=== PATIENT | male | born 1960 | race Caucasian/White ===

== ENCOUNTER 2017-08-06 23:33 | Emergency (ER) | payer OTHER ==
[2017-08-07] MEDS ORDERED: ASPIRIN EC 81 MG TAB PO ONE (00:02)
[2017-08-07 00:10] LABS: Protime INR 0.98
[2017-08-07 00:18] LABS: Absolute Monocytes 0.5 K/uL (0.1-1.3); Absolute Neutrophil 3.1 K/uL (1.8-8.0); Basophils % 0.5 % (0-1.3); Bicarbonate 30 mEq/L (21-31); Eosinophils % 3.7 % (0-4.4); Glucose Level 96 mg/dL (65-120); Hematocrit 39.5 % (39.6-49.0); Lymphocytes % 34.2 % (15.3-44.8); MCH 30.8 pg (27.0-35.0); MCV 89.1 fL (80-100); Monocytes % 8.5 % (3.3-12.3); RBC Red Blood Cell Count 4.43 M/uL (4.33-5.43); Sodium Level 142 mEq/L (135-145)
[2017-08-07 00:24] LABS: ALT/SGPT 21 IU/L (10-60); AST/SGOT 22 IU/L (10-42); Albumin 4.1 g/dL (3.2-5.5); Alkaline Phosphatase 58 IU/L (42-121); BUN Blood Urea Nitrogen 17 mg/dL (6-20); Bilirubin Direct 0.2 mg/dL (0-0.2); Bilirubin Total 1.1 mg/dL (0.3-1.2); Creatine Phosphokinase 85 IU/L (22-269); Magnesium 1.7 mg/dL (1.8-2.5); Protein, Total 6.5 g/dL (6.0-8.3)
[2017-08-07 00:26] LABS: CKMB Creatine Kinase MB 1.5 ng/ml (0.3-4.0)
[2017-08-07] MEDS ORDERED: MAGNESIUM SULFATE 1 gm IVPB 1 GM/100 ML BAG IV ONE (00:55)
--- NOTE | 2017-08-07 02:40 | ER ---
Nurse's Notes [facility] Name: Phani Gaona Age: 56 yrs Sex: Male : 1960 Arrival Date: 08/06/2017 Time: 23:34 Bed 5 Private MD: Diagnosis: Chest pain Presentation: 08/06 23:35 Presenting complaint: Patient states: that for the past couple of days he has been fc having chest pain that radiates to his left arm. Denies any nausea, vomiting or shortness of breath. Transition of care: patient was not received from another setting of care. Onset of symptoms was August 04, 2017. Risk Assessment: Do you want to hurt yourself or someone else? Patient reports no desire to harm self or others. Initial Sepsis Screen: Does the patient meet any 2 criteria? No. Patient's initial sepsis screen is negative. Does the patient have a suspected source of infection? No. Patient's initial sepsis screen is negative. Care prior to arrival: None. 23:35 Method Of Arrival: Ambulatory 23:35 Acuity: LAURA 3 fc Historical: - Allergies: 23:46 No Known Allergies; fc - Home Meds: 23:46 Metoprolol Tartrate Oral 2 times per day [Active]; Plavix 75 mg Oral tab 1 tab once fc daily [Active]; Lipitor 80 mg Oral tab 1 tab once daily [Active]; aspirin 325 mg Oral tab 1 tab once daily [Active]; - PMHx: 23:46 High Cholesterol; Hypertension; Myocardial infarction; fc - PSHx: 23:46 Heart stents; fc - Immunization history:: Last tetanus immunization: up to date. - Social history:: Smoking status: Patient/guardian denies using tobacco, Patient uses alcohol, occasionally. - Ebola Screening: : Patient negative for fever greater than or equal to 101.5 degrees Fahrenheit, and additional compatible Ebola Virus Disease symptoms Patient denies exposure to infectious person Patient denies travel to an Ebola-affected area in the 21 days before illness onset. Screenin:35 Abuse screen: Denies threats or abuse. Nutritional screening: No deficits noted. fc Tuberculosis screening: No symptoms or risk factors identified. Fall Risk None identified. Assessment: 08/07 00:09 General: Appears in no apparent distress. comfortable, Behavior is calm, cooperative. mg2 Pain: Complains of pain in chest Pain radiates to left shoulder Pain currently is 2 out of 10 on a pain scale. Quality of pain is described as sore Pain began a week Is intermittent, Alleviated by rest. Neuro: Level of Consciousness is awake, alert, obeys commands, Oriented to person, place, time, situation. Cardiovascular: Capillary refill < 3 seconds Patient's skin is warm and dry. Rhythm is sinus bradycardia Chest pain is described as mild, Pain is 2 out of 10 on a pain scale. Respiratory: Airway is patent Respiratory effort is even, unlabored, Respiratory pattern is regular, symmetrical. GI: No signs and/or symptoms were reported involving the gastrointestinal system. : No signs and/or symptoms were reported regarding the genitourinary system. EENT: No signs and/or symptoms were reported regarding the EENT system. Derm: Skin is intact, Skin is pink, warm \T\ dry. normal. Musculoskeletal: Circulation, motion, and sensation intact. 02:11 Reassessment: Patient appears in no apparent distress at this time. Patient and/or mg2 family updated on plan of care and expected duration. Pain level reassessed. Patient is alert, oriented x 3, equal unlabored respirations, skin warm/dry/pink. repeat Troponin and ecg was done. awaiting result. patient informed. Vital Signs: 08/06 23:35 BP 145 / 99; Pulse 49; Resp 18; Temp 98.3(O); Pulse Ox 100% on R/A; Weight 72.57 kg fc (R); Height 5 ft. 10 in. (177.80 cm) (R); Pain 310; 08/07 00:59 BP 111 / 74; Pulse 50; Resp 18; Pulse Ox 100% on R/A; Pain 1/10; mg2 02:11 BP 113 / 75; Pulse 50; Resp 18; Pulse Ox 100% on R/A; Pain 1/10; mg2 08/06 23:35 Body Mass Index 22.96 (72.57 kg, 177.80 cm) fc ED Course: 08/06 23:34 Patient arrived in ED. al2 23:35 Arm band placed on Patient placed in an exam room, on a stretcher. fc 23:35 Patient has correct armband on for positive identification. Placed in gown. Bed in low fc position. Call light in reach. senior digital designer on. Pulse ox on. NIBP on. 23:35 No provider procedures requiring assistance completed. fc 23:43 Triage completed. fc 23:49 Initial lab(s) drawn, by me, EKG done, by ED staff, reviewed by Stephan Barbour MD. Inserted aa1 saline lock: 20 gauge in right antecubital area, using aseptic technique. Blood collected. Patient maintains SpO2 saturation greater than 95% on room air. 23:52 Stephan Barbour MD is Attending Physician. pkl 08/07 00:06 Alo Alexis, ADAM is Primary Nurse. mg2 00:08 X-ray completed. Portable x-ray completed in exam room. Patient tolerated procedure kw well. 00:10 XRAY Chest (1 view) In Process Unspecified. EDMS 02:48 IV discontinued, intact, bleeding controlled, No redness/swelling at site. Pressure mg2 dressing applied. Administered Medications: 00:06 Drug: Aspirin 162 mg Route: PO; mg2 02:12 Follow up: Response: No adverse reaction; Pain is decreased mg2 00:58 Drug: Magnesium Sulfate 1 grams Route: IVPB; Infused Over: 1 hrs; Site: right mg2 antecubital; 02:13 Follow up: Response: No adverse reaction; IV Status: Completed infusion mg2 Outcome: 02:39 Discharge ordered by . pkl 02:48 Discharged to home ambulatory. mg2 02:48 Condition: stable 02:48 Discharge instructions given to patient, Instructed on discharge instructions, follow up and referral plans. Demonstrated understanding of instructions, follow-up care. 02:49 Patient left the ED. mg2 Signatures: Dispatcher [employer] EDMS Steffany Johnson RN RN aa1 Stephan Barbour MD MD pkKatelyn Lee RN RN fc Whitley, Kimberlee kw Love, Angelica al2 [place], Michele, ADAM MEDINA mg2
--- NOTE | 2017-08-07 02:40 | EDPHYS ---
Physician Documentation [facility] Name: Phani Gaona Age: 56 yrs Sex: Male : 1960 Arrival Date: 08/06/2017 Time: 23:34 Bed 5 Private MD: ED Physician Stephan Barbour HPI: 08/06 23:57 This 56 yrs old Male presents to ER via Ambulatory with complaints of Chest pkl Pain. 23:57 The patient or guardian reports chest pain that is located primarily in the substernal pkl area. Onset: yesterday. The pain radiates to the left arm. Associated signs and symptoms: The patient has no apparent associated signs or symptoms. The chest pain is described as dull. The patient has experienced a previous episode, approximately 1 years ago. Historical: - Allergies: 23:46 No Known Allergies; fc - Home Meds: 23:46 Metoprolol Tartrate Oral 2 times per day [Active]; Plavix 75 mg Oral tab 1 tab once fc daily [Active]; Lipitor 80 mg Oral tab 1 tab once daily [Active]; aspirin 325 mg Oral tab 1 tab once daily [Active]; - PMHx: 23:46 High Cholesterol; Hypertension; Myocardial infarction; fc - PSHx: 23:46 Heart stents; fc - Immunization history:: Last tetanus immunization: up to date. - Social history:: Smoking status: Patient/guardian denies using tobacco, Patient uses alcohol, occasionally. - Ebola Screening: : Patient negative for fever greater than or equal to 101.5 degrees Fahrenheit, and additional compatible Ebola Virus Disease symptoms Patient denies exposure to infectious person Patient denies travel to an Ebola-affected area in the 21 days before illness onset. ROS: 23:57 Eyes: Negative for injury, pain, redness, and discharge, ENT: Negative for injury, pkl pain, and discharge, Neck: Negative for injury, pain, and swelling. 23:57 Cardiovascular: Positive for chest pain. 23:57 Respiratory: Negative for cough, shortness of breath. 23:57 Abdomen/GI: Negative for abdominal pain, nausea, vomiting, and diarrhea. 23:57 Back: Negative for acute changes. 23:57 : Negative for urinary symptoms. 23:57 MS/extremity: Negative for acute changes. 23:57 Skin: Negative for rash. 23:57 Neuro: Negative for altered mental status. Exam: 23:57 Head/Face: Normocephalic, atraumatic. Eyes: Pupils equal round and reactive to light, pkl extra-ocular motions intact. Lids and lashes normal. Conjunctiva and sclera are non-icteric and not injected. Cornea within normal limits. Periorbital areas with no swelling, redness, or edema. ENT: Nares patent. No nasal discharge, no septal abnormalities noted. Tympanic membranes are normal and external auditory canals are clear. Oropharynx with no redness, swelling, or masses, exudates, or evidence of obstruction, uvula midline. Mucous membranes moist. Neck: Trachea midline, no thyromegaly or masses palpated, and no cervical lymphadenopathy. Supple, full range of motion without nuchal rigidity, or vertebral point tenderness. No Meningismus. Chest/axilla: Normal chest wall appearance and motion. Nontender with no deformity. No lesions are appreciated. Cardiovascular: Regular rate and rhythm with a normal S1 and S2. No gallops, murmurs, or rubs. Normal PMI, no JVD. No pulse deficits. Respiratory: Lungs have equal breath sounds bilaterally, clear to auscultation and percussion. No rales, rhonchi or wheezes noted. No increased work of breathing, no retractions or nasal flaring. Abdomen/GI: Soft, non-tender, with normal bowel sounds. No distension or tympany. No guarding or rebound. No evidence of tenderness throughout. Back: No spinal tenderness. No costovertebral tenderness. Full range of motion. Male : Normal genitalia with no discharge or lesions. Skin: Warm, dry with normal turgor. Normal color with no rashes, no lesions, and no evidence of cellulitis. MS/ Extremity: Pulses equal, no cyanosis. Neurovascular intact. Full, normal range of motion. Neuro: Awake and alert, GCS 15, oriented to person, place, time, and situation. Cranial nerves II-XII grossly intact. Motor strength 5/5 in all extremities. Sensory grossly intact. Cerebellar exam normal. Normal gait. Vital Signs: 23:35 BP 145 / 99; Pulse 49; Resp 18; Temp 98.3(O); Pulse Ox 100% on R/A; Weight 72.57 kg fc (R); Height 5 ft. 10 in. (177.80 cm) (R); Pain 3/10; 08/07 00:59 BP 111 / 74; Pulse 50; Resp 18; Pulse Ox 100% on R/A; Pain 1/10; mg2 02:11 BP 113 / 75; Pulse 50; Resp 18; Pulse Ox 100% on R/A; Pain 1/10; mg2 08/06 23:35 Body Mass Index 22.96 (72.57 kg, 177.80 cm) fc MDM: 08/06 23:52 Patient medically screened. pkl 08/07 02:36 Data reviewed: vital signs, nurses notes, lab test result(s), EKG, radiologic studies, pkl plain films. ED course: Discussed lab., EKG, X rays findings with patient. Advised to see Dr. Kong ( patient Car Rental Clerk ) in 1 to 2 days for further evaluations. 08/06 23:50 Order name: Basic Metabolic Panel; Complete Time: 00:49 aa1 08/06 23:50 Order name: BNP; Complete Time: 00:54 aa08/06 23:50 Order name: CBC with Diff; Complete Time: 00:49 aa08/06 23:50 Order name: Ckmb; Complete Time: 00:49 aa08/06 23:50 Order name: CPK; Complete Time: 00:49 aa08/06 23:50 Order name: LFT's; Complete Time: 00:49 aa08/06 23:50 Order name: Magnesium; Complete Time: 00:49 aa08/06 23:50 Order name: PT-INR; Complete Time: 00:49 aa08/06 23:50 Order name: Ptt, Activated; Complete Time: 00:49 08/06 23:50 Order name: Troponin (emerg Dept Use Only); Complete Time: 00:49 aa08/06 23:50 Order name: XRAY Chest (1 view) aa1 08/07 01:57 Order name: Troponin (emerg Dept Use Only); Complete Time: 02:36 pkl 08/06 23:50 Order name: EKG; Complete Time: 23:51 aa08/06 23:50 Order name: Cardiac monitoring; Complete Time: 23:51 aa1 08/06 23:50 Order name: EKG - Nurse/Tech; Complete Time: 23:51 aa08/06 23:50 Order name: IV Saline Lock; Complete Time: 23:51 08/06 23:50 Order name: Labs collected and sent; Complete Time: 23:51 08/06 23:50 Order name: O2 Per Protocol; Complete Time: 23:51 08/06 23:50 Order name: O2 Sat Monitoring; Complete Time: 23:51 08/07 01:57 Order name: EKG - Nurse/Tech; Complete Time: 02:12 pkl Administered Medications: 00:06 Drug: Aspirin 162 mg Route: PO; mg2 02:12 Follow up: Response: No adverse reaction; Pain is decreased mg2 00:58 Drug: Magnesium Sulfate 1 grams Route: IVPB; Infused Over: 1 hrs; Site: right mg2 antecubital; 02:13 Follow up: Response: No adverse reaction; IV Status: Completed infusion mg2 Disposition: 08/07/17 02:39 Discharged to Home. Impression: Chest pain. - Condition is Stable. - Medication Reconciliation Form, Thank You Letter, Antibiotic Education, Prescription Opioid Use form. - Follow up: Private Physician; When: 1 - 2 days; Reason: Re-evaluation by your physician. - Problem is new. - Symptoms have improved. Signatures: Dispatcher [employer] EDMS Steffany Johnson RN RN aa1 Stephan Barbour MD MD pkl Katelyn Nagy RN RN Alo Alexis RN RN mg2 Corrections: (The following items were deleted from the chart) 02:49 02:39 08/07/2017 02:39 Discharged to Home. Impression: Chest pain. Condition is Stable. mg2 Forms are Medication Reconciliation Form, Thank You Letter, Antibiotic Education, Prescription Opioid Use. Follow up: Private Physician; When: 1 - 2 days; Reason: Re-evaluation by your physician. Problem is new. Symptoms have improved. pkl
--- NOTE | 2017-08-07 06:19 | EKG ---
Test Date: 2017-08-07 Test Time: 02:08:08 Rip Machine Operator: CHRIS MEASUREMENT RESULTS: Intervals: Rate: 50 AR: 192 QRSD: 94 QT: 448 QTc: 408 [place]: P: 46 AR: 192 QRS: 43 T: 43 INTERPRETIVE STATEMENTS: Sinus bradycardia with occasional premature ventricular complexes Otherwise normal ECG Compared to ECG 04/02/2015 02:07:24 Ventricular premature complex(es) now present Sinus rhythm no longer present Electronically Signed On 08-07-17 06:18:40 CDT by Bry George
--- NOTE | 2017-08-07 07:46 | EKG ---
Test Date: 2017-08-06 Test Time: 23:45:12 Au Pair: MEASUREMENT RESULTS: Intervals: Rate: 49 KS: 180 QRSD: 86 QT: 430 QTc: 388 [place]: P: 41 KS: 180 QRS: 55 T: 47 INTERPRETIVE STATEMENTS: Sinus bradycardia Otherwise normal ECG Compared to ECG 04/02/2015 02:07:24 Sinus rhythm no longer present Electronically Signed On 08-07-17 07:45:28 CDT by Bry George
--- NOTE | 2017-08-07 08:44 | RAD REPORT ---
EXAM DESCRIPTION: RAD - Chest Single View - 08/07/2017 12:11 am CLINICAL HISTORY: Chest pain. COMPARISON: 04/02/2015 FINDINGS: Portable technique limits examination quality. The lungs are grossly clear. The heart is normal in size. No displaced fractures. IMPRESSION: No acute intrathoracic process suspected.
== END 2017-08-07 02:49 | disposition home or self-care (01) ==
LOC: ER 23:33
DX: R07.9 Chest pain, unspecified (principal); I10 Essential (primary) hypertension; E78.00 Pure hypercholesterolemia, unspecified; I25.2 Old myocardial infarction; Z95.818 Presence of other cardiac implants and grafts; Z79.01 Long term (current) use of anticoagulants; Z79.82 Long term (current) use of aspirin
CPT/HCPCS: 36415; 71045; 80048; 80076; 82550; 82553; 83735; 83880; 84484; 85025; 85610; 85730; 93005; 96365; 99285; J3475

== ENCOUNTER 2022-03-03 19:34 | Emergency (ER) | payer OTHER ==
[2022-03-03 20:58] LABS: Absolute Lymphocytes (CBC) 1.5 K/uL (0.7-4.9); Hematocrit 41.1 % (39.6-49.0); Lymphocytes % 21.9 % (15.3-44.8); MCV 88.4 fL (80-100); MPV 8.5 fL (7.6-11.3); RBC Red Blood Cell Count 4.64 M/uL (4.33-5.43)
[2022-03-03 20:59] LABS: Potassium 3.8 mmol/L (3.5-5.1); Troponin High Sensitivity 6.3 pg/mL (<58.9)
--- NOTE | 2022-03-03 21:43 | RAD REPORT ---
EXAM DESCRIPTION: RAD - Chest Single View - 03/03/2022 9:32 pm CLINICAL HISTORY: CHEST PAIN COMPARISON: Chest Single View dated 08/06/2017; CHEST SINGLE VIEW dated 04/02/2015 FINDINGS: Lines: None. Lungs: No evidence of edema or pneumonia. Pleural: No significant pleural effusions or pneumothorax. Cardiac: The heart size is within normal limits. Mediastinum: Within normal limits. Bones: No acute fractures. Other: None IMPRESSION: No acute cardiopulmonary disease.
--- NOTE | 2022-03-03 23:17 | ER ---
Nurse's Notes [facility] Name: Phani Gaona Age: 61 yrs Sex: Male : 1960 Arrival Date: 03/03/2022 Time: 19:35 Bed 26 Private MD: Diagnosis: Chest pain, unspecified Presentation: 03/03 19:44 Chief complaint: Patient states: I have chest pain and left arm pain, it started on aa9 saturday. Coronavirus screen: Vaccine status:. Onset of symptoms was March 03, 2022. 19:44 Method Of Arrival: Ambulatory aa9 19:44 Acuity: LAURA 3 aa9 19:47 Ebola Screen: No symptoms or risks identified at this time. Initial Sepsis Screen: Does aa9 the patient meet any 2 criteria? No. Patient's initial sepsis screen is negative. Does the patient have a suspected source of infection? No. Patient's initial sepsis screen is negative. Risk Assessment: Do you want to hurt yourself or someone else? Patient reports no desire to harm self or others. Triage Assessment: 19:46 General: Appears in no apparent distress. slender, Behavior is calm, cooperative, aa9 appropriate for age. Pain: Complains of pain in chest Pain radiates to left arm Pain currently is 3 out of 10 on a pain scale. Quality of pain is described as dull. Neuro: Level of Consciousness is awake, alert, obeys commands, Oriented to person, place, time, situation. Cardiovascular: Patient's skin is warm and dry. Cardiovascular: Parent/caregiver reports patient has had chest pain. Respiratory: Airway is patent Respiratory effort is even, unlabored. GI: Patient currently denies nausea, vomiting. : No signs and/or symptoms were reported regarding the genitourinary system. Derm: Skin is intact, is healthy with good turgor. Historical: - Allergies: 19:49 No Known Allergies; aa9 - Home Meds: 19:49 aspirin 325 mg Oral tab 1 tab once daily [Active]; Lipitor 80 mg Oral tab 1 tab once aa9 daily [Active]; Metoprolol Tartrate Oral 2 times per day [Active]; Plavix 75 mg Oral tab 1 tab once daily [Active]; - PMHx: 19:47 High Cholesterol; Hypertension; Myocardial infarction; aa9 - PSHx: 19:47 cardiac stent; aa9 - Immunization history:: Client reports receiving the 2nd dose of the Covid vaccine. - Social history:: Smoking status: Patient denies any tobacco usage or history of. Screenin:44 [facility] ED Fall Risk Assessment (Adult) History of falling in the last 3 months, fu including since admission No falls in past 3 months (0 pts). Abuse screen: Denies threats or abuse. Nutritional screening: No deficits noted. Tuberculosis screening: No symptoms or risk factors identified. Assessment: 20:42 General: Appears in no apparent distress. comfortable, Behavior is calm, cooperative, fu appropriate for age, Denies fever, chills. Pain: Complains of pain in left arm and chest Pain does not radiate. Pain currently is 2 out of 10 on a pain scale. Pain began 4 days ago. Neuro: Level of Consciousness is awake, alert, obeys commands, Oriented to person, place, time, situation, Moves all extremities. Speech is normal, Facial symmetry appears normal. Cardiovascular: Reports chest pain. Respiratory: Respiratory effort is even, unlabored, Respiratory pattern is regular. GI: No signs and/or symptoms were reported involving the gastrointestinal system. : No signs and/or symptoms were reported regarding the genitourinary system. 21:00 Reassessment: Patient and/or family updated on plan of care and expected duration. Pain fu level reassessed. Patient is alert, oriented x 3, equal unlabored respirations, skin warm/dry/pink. 22:00 Reassessment: Patient and/or family updated on plan of care and expected duration. Pain fu level reassessed. Patient is alert, oriented x 3, equal unlabored respirations, skin warm/dry/pink. patient resting in bed. 23:16 Reassessment: Patient and/or family updated on plan of care and expected duration. Pain fu level reassessed. Patient is alert, oriented x 3, equal unlabored respirations, skin warm/dry/pink. Vital Signs: 19:47 BP 142 / 95; Pulse 69; Temp 98.8(O); Pulse Ox 96% on R/A; Weight 74.84 kg; Height 5 ft. aa9 9 in. (175.26 cm) (R); 20:30 BP 108 / 66; Pulse 61; Resp 12; Pulse Ox 98% on R/A; Pain 2/10; fu 21:15 BP 117 / 74; Pulse 56; Resp 17; Pulse Ox 17% on R/A; fu 21:45 BP 105 / 71; Pulse 59; Resp 18; Pulse Ox 100% ; fu 22:00 BP 107 / 74; Pulse 61; Resp 21; Pulse Ox 98% on R/A; Pain 0/10; fu 22:45 BP 105 / 71; Pulse 59; Resp 18; Pulse Ox 100% on R/A; Pain 0/10; fu 23:30 BP 104 / 65; Pulse 58; Resp 17; Pulse Ox 99% ; Pain 1/10; fu 19:47 Body Mass Index 24.37 (74.84 kg, 175.26 cm) aa9 ED Course: 19:35 Patient arrived in ED. as 19:43 Coco Claros FNP-C is PHCP. kb 19:43 Cecilia Thompson MD is Attending Physician. kb 19:46 Triage completed. aa9 20:17 Wilian Amador, RN is Primary Nurse. fu 20:32 Inserted saline lock: 20 gauge in right antecubital area, using aseptic technique. fu Blood collected. 20:32 Basic Metabolic Panel Sent. fu 20:32 CBC with Diff Sent. fu 20:32 Magnesium Sent. fu 20:33 NT PRO-BNP Sent. fu 20:33 Troponin HS Sent. fu 20:44 Patient has correct armband on for positive identification. Bed in low position. Call fu light in reach. Side rails up X 1. vehicle monitor technician on. Pulse ox on. NIBP on. Warm blanket given. 21:33 XRAY Chest (1 view) In Process Unspecified. EDMS 22:00 Patient maintains SpO2 saturation greater than 95% on room air. fu 22:59 Troponin HS Sent. fu 23:56 No provider procedures requiring assistance completed. IV discontinued, bleeding fu controlled, Pressure dressing applied. Administered Medications: No medications were administered Medication: 23:50 VIS not applicable for this client. fu Outcome: 23:15 Discharge ordered by . kb 23:56 Discharged to home ambulatory, with family. fu 23:56 Condition: good 23:56 Discharge instructions given to patient, Instructed on discharge instructions, follow up and referral plans. Demonstrated understanding of instructions, follow-up care, Prescriptions given X 0 23:57 Patient left the ED. fu Signatures: Dispatcher [employer] EDCoco Joshua, LIQUID SUGAR MELTER-C LIQUID SUGAR MELTER-Sarah Jones as Wilian Amador RN Kanchan Ge RN RN aa9 Corrections: (The following items were deleted from the chart) 23:01 20:42 Pain: Complains of pain in left arm and chest Pain currently is 2 out of 10 on a fu pain scale. Pain began 4 days ago fu
--- NOTE | 2022-03-03 23:17 | EDPHYS ---
Physician Documentation [facility] Name: Phani Gaona Age: 61 yrs Sex: Male : 1960 Arrival Date: 03/03/2022 Time: 19:35 Bed 26 Private MD: ED Physician Cecilia Thompson HPI: 03/03 21:07 This 61 yrs old Male presents to ER via Ambulatory with complaints of Chest Pain. kb 19:47 Pt reports dull chest and left arm pain that has been intermittent since Saturday.. kb 21:07 The patient or guardian reports chest pain that is located primarily in the anterior kb chest wall, left. Onset: 4 day(s) ago. The pain radiates to the left arm. Associated signs and symptoms: The patient has no apparent associated signs or symptoms. The chest pain is described as dull. Duration: The patient or guardian reports multiple episodes, that are intermittent, with no pattern. Modifying factors: The symptoms are alleviated by nothing. the symptoms are aggravated by nothing. Severity of pain: At its worst the pain was moderate in the emergency department the pain is unchanged. The patient has experienced similar episodes in the past, a few times. The patient has not recently seen a physician. Historical: - Allergies: 19:49 No Known Allergies; aa9 - Home Meds: 19:49 aspirin 325 mg Oral tab 1 tab once daily [Active]; Lipitor 80 mg Oral tab 1 tab once aa9 daily [Active]; Metoprolol Tartrate Oral 2 times per day [Active]; Plavix 75 mg Oral tab 1 tab once daily [Active]; - PMHx: 19:47 High Cholesterol; Hypertension; Myocardial infarction; aa9 - PSHx: 19:47 cardiac stent; aa9 - Immunization history:: Client reports receiving the 2nd dose of the Covid vaccine. - Social history:: Smoking status: Patient denies any tobacco usage or history of. ROS: 21:06 Constitutional: Negative for fever, chills, and weight loss. kb 21:06 Cardiovascular: Positive for chest pain. 21:06 MS/extremity: Positive for pain, of the left arm. 21:06 All other systems are negative. Exam: 21:05 Constitutional: This is a well developed, well nourished patient who is awake, alert, kb and in no acute distress. Head/Face: Normocephalic, atraumatic. ENT: Moist Mucous membranes Cardiovascular: Regular rate and rhythm with a normal S1 and S2. No gallops, murmurs, or rubs. No pulse deficits. Respiratory: Respirations even and unlabored. No increased work of breathing. Talking in full sentences Abdomen/GI: Soft, non-tender. No distention Skin: Warm, dry with normal turgor. Normal color. MS/ Extremity: Pulses equal, no cyanosis. Neurovascular intact. Full, normal range of motion. Neuro: Awake and alert, GCS 15, oriented to person, place, time, and situation. Moves all extremities. Normal gait. Psych: Awake, alert, with orientation to person, place and time. Behavior, mood, and affect are within normal limits. 21:05 ECG was reviewed by the Attending Physician. Vital Signs: 19:47 BP 142 / 95; Pulse 69; Temp 98.8(O); Pulse Ox 96% on R/A; Weight 74.84 kg; Height 5 ft. aa9 9 in. (175.26 cm) (R); 20:30 BP 108 / 66; Pulse 61; Resp 12; Pulse Ox 98% on R/A; Pain 2/10; fu 21:15 BP 117 / 74; Pulse 56; Resp 17; Pulse Ox 17% on R/A; fu 21:45 BP 105 / 71; Pulse 59; Resp 18; Pulse Ox 100% ; fu 22:00 BP 107 / 74; Pulse 61; Resp 21; Pulse Ox 98% on R/A; Pain 0/10; fu 22:45 BP 105 / 71; Pulse 59; Resp 18; Pulse Ox 100% on R/A; Pain 0/10; fu 23:30 BP 104 / 65; Pulse 58; Resp 17; Pulse Ox 99% ; Pain 1/10; fu 19:47 Body Mass Index 24.37 (74.84 kg, 175.26 cm) aa9 MDM: 19:47 Patient medically screened. kb 21:06 Data reviewed: vital signs, nurses notes. Data interpreted: Pulse oximetry: on room air kb is 96 %. Interpretation: normal. 23:13 Counseling: I had a detailed discussion with the patient and/or guardian regarding: the kb historical points, exam findings, and any diagnostic results supporting the discharge/admit diagnosis, lab results, radiology results, the need for outpatient follow up, a family practitioner, to return to the emergency department if symptoms worsen or persist or if there are any questions or concerns that arise at home. ED course: Consideration of hospitalization: Hospitalization considered for chest pain with patient's history. Patient has a heart score of 3 due to age and risk factors. Discussed with patient and he prefers to go home. Onset of chest pain was 4 days ago, normal EKG, normal high-sensitivity troponin x2. Will discharge home and patient will follow-up outpatient. Independent interpretation of the following tests in the emergency department: EKG reveals normal sinus rhythm; History obtained from: Patient. 23:16 Differential diagnosis: abnormal EKG, acute myocardial infarction, coronary artery kb disease stable angina. 03/03 19:47 Order name: Basic Metabolic Panel; Complete Time: 21:05 kb 03/03 19:47 Order name: CBC with Diff; Complete Time: 21:05 kb 03/03 19:47 Order name: Magnesium; Complete Time: 21:05 kb 03/03 19:47 Order name: NT PRO-BNP; Complete Time: 21:05 kb 03/03 19:47 Order name: Troponin HS; Complete Time: 21:05 kb 03/03 22:26 Order name: Troponin HS; Complete Time: 23:13 kb 03/03 19:47 Order name: XRAY Chest (1 view); Complete Time: 21:47 kb 03/03 19:47 Order name: EKG; Complete Time: 19:48 kb 03/03 19:47 Order name: Cardiac monitoring; Complete Time: 20:32 kb 03/03 19:47 Order name: EKG - Nurse/Tech; Complete Time: 20:23 kb 03/03 19:47 Order name: IV Saline Lock; Complete Time: 20:32 kb 03/03 19:47 Order name: Labs collected and sent; Complete Time: 20:32 kb 03/03 19:47 Order name: O2 Per Protocol; Complete Time: 20:32 kb 03/03 19:47 Order name: O2 Sat Monitoring; Complete Time: 20:32 kb EC:05 Rate is 60 beats/min. Rhythm is regular. QRS [place] is Normal. UT interval is normal at kb 192 msec. QRS interval is normal at 92 msec. QT interval is normal at 402 msec. Administered Medications: No medications were administered Disposition Summary: 03/03/22 23:15 Discharge Ordered Location: Home kb Condition: Stable kb Diagnosis - Chest pain, unspecified kb Followup: kb - With: Emergency Department - When: As needed - Reason: Worsening of condition Followup: kb - With: Private Physician - When: 2 - 3 days - Reason: Recheck today's complaints, Continuance of care, Re-evaluation by your physician Discharge Instructions: - Discharge Summary Sheet kb - Nonspecific Chest Pain, Adult, [id number] kb Forms: - Medication Reconciliation Form kb - Thank You Letter kb - Antibiotic Education kb - Prescription Opioid Use kb Signatures: Dispatcher [employer] EDCoco Joshua, SLING OPERATOR-C SLING OPERATOR-Kanchan Francis, RN RN aa9
[2022-03-04 01:46] VITALS: TEMP 98.8
[2022-03-04 01:52] VITALS: BP 105/71; O2SAT 100
--- NOTE | 2022-03-04 16:47 | EKG ---
Test Date: 2022-03-03 Test Time: 20:21:11 [employer]: CHRIS MEASUREMENT RESULTS: Intervals: Rate: 60 [place]: 192 QRSD: 92 QT: 402 QTc: 402 [place]: P: 72 [place]: 192 QRS: 74 T: 48 INTERPRETIVE STATEMENTS: Normal sinus rhythm Normal ECG Compared to ECG 08/07/2017 02:08:08 Sinus bradycardia no longer present Ventricular premature complex(es) no longer present Electronically Signed On 03-04-22 16:47:14 [employer] by Saurabh Hackett
== END 2022-03-03 23:57 | disposition home or self-care (01) ==
LOC: ER 19:34
DX: R07.89 Other chest pain (principal); I10 Essential (primary) hypertension; E78.00 Pure hypercholesterolemia, unspecified; I25.2 Old myocardial infarction; Z95.818 Presence of other cardiac implants and grafts; Z79.01 Long term (current) use of anticoagulants; Z79.82 Long term (current) use of aspirin
CPT/HCPCS: 36415; 71045; 80048; 83735; 83880; 84484; 85025; 93005; 99285